=== PATIENT | female | born 1965 | race Caucasian/White ===

== ENCOUNTER 2020-08-29 13:56 | Outpatient (REF) | payer BC, SELFPAY | END 2020-08-29 13:57 | disposition home or self-care (01) | LOC: HO.HMGCLDS 13:56 | PROVIDERS: PCP Internal Medicine; Visit Provider Internal Medicine | DX: Z20.828 Contact with and (suspected) exposure to other viral communicable diseases (principal) | CPT/HCPCS: C9803; U0003 ==

== ENCOUNTER 2020-09-19 11:15 | Outpatient (REF) | payer BC, SELFPAY | END 2020-09-19 11:16 | disposition home or self-care (01) | LOC: HO.HMGCLDS 11:15 | PROVIDERS: PCP Internal Medicine; Visit Provider Internal Medicine | DX: Z20.828 Contact with and (suspected) exposure to other viral communicable diseases (principal) | CPT/HCPCS: C9803; U0003 ==

== ENCOUNTER 2021-09-09 15:20 | Outpatient (REF) | payer BC, SELFPAY ==
[2021-09-09 16:39] LABS: MANUAL DIFF FLAG NO
[2021-09-09 16:46] LABS: Basophils Percent Auto 0.6 % (0-2); Eosinophils Absolute Auto 0.1 X10*3/uL (0.0-0.4); Eosinophils Percent Auto 1.2 % (0-4); Hematocrit 39.7 % (37.0-47.0); Hemoglobin 13.2 g/dl (12.0-16.0); Imm Gran Abs Auto 0.01 X10*3/uL (0.00-0.03); Imm Gran Pct Auto 0.2 % (0.0-0.4); Lymphocytes Absolute Auto 1.2 X10*3/uL (1.2-4.9); Mean Corpuscular HGB Conc 33.2 g/dl (31.0-35.0); Mean Corpuscular Volume 99.3 fL (80.0-98.0); Mean Platelet Volume 9.9 fL (9.4-12.3); Monocytes Absolute Auto 0.4 X10*3/uL (0.1-1.2); Monocytes Percent Auto 8.4 % (2-11); Neutrophils Absolute Auto 3.4 x10*3/uL (2.0-8.3); Neutrophils Percent Auto 65.6 % (45-73); Platelet Count 246 X10*3/uL (160-400); Red Cell Distribution Width 12.9 % (11.0-16.0); White Blood Count 5.1 X10*3/uL (4.8-10.8)
[2021-09-09 17:03] LABS: Iron 91 mcg/dL (30-160); Percent Iron Saturation 24 % (15-50); Total Iron Binding Capacity 378 mcg/dL (228-428); Unsaturated Iron Binding 287 ug/dL
[2021-09-09 17:25] LABS: Ferritin 38 ng/mL (10-250); Free T4 (Free Thyroxine) 0.84 ng/dL (0.71-1.85); Thyroid Stimulating Hormone 0.74 uIU/mL (0.32-4.0)
[2021-09-10 18:07] LABS: DHEA Sulfate 56 mcg/dL (8-188)
[2021-09-10 22:01] LABS: Triiodothyronine T3 Free 2.6 pg/mL (2.3-4.2)
[2021-09-11 23:22] LABS: Follicle Stimulating Hormone 27.8 mIU/mL; Lutenizing Hormone 29.2 mIU/mL
[2021-09-12 00:27] LABS: Zinc 49 mcg/dL (60-130)
[2021-09-12 16:12] LABS: Methylmalonic Acid 75 nmol/L (87-318)
[2021-09-13 13:57] LABS: IGF-1 (Somatomedin C) 140 ng/mL (50-317); IGF-1 Z Score (Female) 0.1 SD (-2.0 - +2.0)
[2021-09-15 15:17] LABS: Testosterone, Free 1.2 pg/mL (0.1-6.4); Testosterone, Total 12 ng/dL (2-45)
[2021-09-15 22:46] LABS: Progesterone <0.1 ng/mL
[2021-09-17 00:07] LABS: Estrogen 339.6 pg/mL
== END 2021-09-09 15:21 | disposition home or self-care (01) ==
LOC: HO.HMGCLDS 15:20
PROVIDERS: Visit Provider Allergy & Immunology Allergy
DX: N95.8 Other specified menopausal and perimenopausal disorders (principal); D50.8 Other iron deficiency anemias; E07.89 Other specified disorders of thyroid; K90.9 Intestinal malabsorption, unspecified
CPT/HCPCS: 36415; 82627; 82672; 82728; 83001; 83002; 83540; 83735; 83921; 84144; 84305; 84402; 84403; 84439; 84443; 84481; 84630; 85025

== ENCOUNTER 2021-09-18 09:53 | Outpatient (REF) | payer BC, SELFPAY ==
[2021-09-20 22:12] LABS: Fecal Fat Qualitative Normal (Normal)
[2021-09-24 19:11] LABS: Pancreatic Elastase-1 455 mcg/g
== END 2021-09-18 09:54 | disposition home or self-care (01) ==
LOC: HO.HMGCLNP 09:53
PROVIDERS: Visit Provider Allergy & Immunology Allergy
DX: K90.9 Intestinal malabsorption, unspecified (principal)
CPT/HCPCS: 82656; 82705

== ENCOUNTER 2021-09-26 10:12 | Outpatient (REF) | payer BC, SELFPAY | END 2021-09-26 10:13 | disposition home or self-care (01) | LOC: HO.HMGCLDS 10:12 | PROVIDERS: Visit Provider Allergy & Immunology Allergy | DX: Z13.89 Encounter for screening for other disorder (principal) ==

== ENCOUNTER 2021-10-07 11:25 | Outpatient (REF) | payer BC, SELFPAY ==
[2021-10-07 15:13] LABS: Vitamin D 25-OH Total 21.8 ng/mL (>30)
== END 2021-10-07 11:26 | disposition home or self-care (01) ==
LOC: HO.HMGCLDS 11:25
PROVIDERS: Absent Provider Internal Medicine; PCP Internal Medicine; Visit Provider Internal Medicine
DX: Z78.0 Asymptomatic menopausal state (principal); Z20.822 Contact with and (suspected) exposure to COVID-19
CPT/HCPCS: 36415; 82306; C9803; U0003; U0005

== ENCOUNTER 2022-10-11 15:30 | Outpatient (REF) | payer BC, SELFPAY ==
[2022-10-11 16:28] LABS: Influenza A PCR NEGATIVE (Negative); Influenza B PCR NEGATIVE (Negative); Resp Syncy Virus RNA Qual PCR POSITIVE (Negative); SARS COV2 PCR INHOUSE NEGATIVE (Negative)
== END 2022-10-11 15:31 | disposition home or self-care (01) ==
LOC: HO.LNP 15:30
PROVIDERS: Visit Provider Internal Medicine
DX: Z20.822 Contact with and (suspected) exposure to COVID-19 (principal); R43.9 Unspecified disturbances of smell and taste
CPT/HCPCS: 0241U

== ENCOUNTER 2023-04-04 08:28 | Outpatient (REF) | payer BC, SELFPAY ==
[2023-04-04 11:03] LABS: MANUAL DIFF FLAG NO
[2023-04-04 11:09] LABS: Basophils Absolute Auto 0.1 X10*3/uL (0.0-0.2); Basophils Percent Auto 1.2 % (0-2); Eosinophils Absolute Auto 0.2 X10*3/uL (0.0-0.4); Hematocrit 39.2 % (37.0-47.0); Hemoglobin 12.6 g/dl (12.0-16.0); Imm Gran Abs Auto 0.01 X10*3/uL (0.00-0.03); Imm Gran Pct Auto 0.2 % (0.0-0.4); Lymphocytes Absolute Auto 1.3 X10*3/uL (1.2-4.9); Lymphocytes Percent Auto 33.3 % (20-40); Mean Corpuscular HGB Conc 32.1 g/dl (31.0-35.0); Mean Corpuscular Hemoglobin 32.1 pg (27.0-33.0); Mean Corpuscular Volume 99.7 fL (80.0-98.0); Mean Platelet Volume 10.3 fL (9.4-12.3); Monocytes Absolute Auto 0.4 X10*3/uL (0.1-1.2); Monocytes Percent Auto 9.7 % (2-11); Neutrophils Percent Auto 50.6 % (45-73); Platelet Count 313 X10*3/uL (160-400); Red Blood Count 3.93 X10*6/uL (4.20-5.50); Red Cell Distribution Width 13.6 % (11.0-16.0)
[2023-04-04 11:51] LABS: Alanine Aminotransferase 12 U/L (0-31); Anion Gap 10 (12-20); Aspartate Amino Transferase 23 U/L (5-31); Blood Urea Nitrogen 13 mg/dL (9-16); Calcium 9.3 mg/dL (8.4-10.2); Carbon Dioxide 26 mmol/L (22-29); Chloride 106 mmol/L (96-108); Cholesterol 150 mg/dL; Estimated Glomerular Filt Rate > 60; Glucose Fasting 74 mg/dL (60-99); HDL Cholesterol 72 mg/dL; LDL Cholesterol Calculated 67 mg/dl; Potassium 4.4 mmol/L (3.3-5.1); Sodium 138 mmol/L (135-145); Triglycerides 57 mg/dL
[2023-04-04 12:09] LABS: Vitamin D 25-OH Total 57.4 ng/mL (>30)
== END 2023-04-04 08:29 | disposition home or self-care (01) ==
LOC: HO.HMGCLDS 08:28
PROVIDERS: PCP Internal Medicine; Visit Provider Internal Medicine
DX: E55.9 Vitamin D deficiency, unspecified (principal); N95.1 Menopausal and female climacteric states; Z00.01 Encounter for general adult medical examination with abnormal findings
CPT/HCPCS: 36415; 80048; 80061; 82306; 84450; 84460; 85025

== ENCOUNTER 2023-10-26 10:05 | Outpatient (AMB) | payer BC, SELFPAY ==
[2023-10-26 10:22] VITALS: BP 122/72; PULSE 67; TEMP 36.6; O2SAT 98; BMI 22.5
--- NOTE | 2023-10-26 10:22 | MHC.OFFWIV ---
Intake Vital Signs 10/26/23 10:22 Height 5 ft 4 in Weight 131 lb 2 oz BMI 22.5 BP 122/72 Blood Pressure Location Lt brachial Position Sitting Pulse 67 Pulse Source Pulse Oximeter Temp 97.8 F Temp Source Oral Pulse Oximetry (%) 98 Oxygen Delivery Method Room Air Intake Visit Reasons: EP, sore throat, congestion ([phone]) Intake Note: Patient is here with nasal congestion, sore throat, neg. Covid test. Patient Tobacco Use Status: Former Tobacco user Allergies penicillin V Allergy (Unknown, Unverified 10/26/23 10:25) rash, dizziness, rash,dizziness Do you need a note to return to daycare/school/sports/work: Yes HPI HPI Comments History of Present Illness Details Patient presents to the walkin today with complaints of sinus congestion for last 2 weeks She has been using mucinex nasal spray but states it is no longer effective Reports difficulty breathing through her nose, worse in the night Tenderness across face She has tried herbal treatments and essential oils without relief. States no longer able to blow her nose and expel the mucous Denies cough, fever, shortness of breath, chest pain, palpitations Does report recently started having a sore throat. [facility] Medical History Menopausal and female climacteric states Environmental and seasonal allergies Vitamin D deficiency Adult general medical exam Postmenopausal syndrome Refused influenza vaccine Social History Housing: House Patient Tobacco Use Status: Former Tobacco user Tobacco use type: Cigarette Years Smoked: 10 yrs e-Cigarette/Vaping Use: Never Used Current occupational status: employed Cognitive needs: No Hearing needs: No Vision needs: No Review of Systems Const All systems reviewed & are unremarkable except as noted in HPI and below Physical Exam Vital Signs: Last Vital Signs Temp 97.8 F 10/26/23 10:22 Pulse 67 10/26/23 10:22 BP 122/72 10/26/23 10:22 Pulse Ox 98 10/26/23 10:22 Oxygen Delivery Method Room Air 10/26/23 10:22 BMI result Body Mass Index 22.5 General: awake, alert, oriented. Answers questions appropriately. Fully engaged in examination. Skin: warm, dry, intact HEENT: Left TM bulging, tenderness to frontal and maxillary sinuses. Posterior pharynx without erythema or exudate. negative lymphadenopathy. Cardiac: External chest normal in appearance. Respiratory: No cough, audible wheezing or stridor. LSCTAB. Abdomen: without gross distension. MS: No obvious swelling or deformities. Neurological: Oriented to person, place, time and situation. Thought process intact. Psychiatric: Appropriate mood and affect. Good judgment and insight. Results AMB Rapid Strep AMB Rapid Strep Negative Last Edit by Cass Emanuel CMA on 10/26/23 10:38 Results Reviewed Results Reviewed: Laboratory Last Values Strep Scn Rapid Clinic Negative 10/26/23 10:33 Assessment & Plan Assessment & Plan (1) Sinusitis: Code(s): J32.9 - Chronic sinusitis, unspecified Plan Rapid strep negative Zpak take as directed stop nasal mucinex Acute sinusitis: Rest, drink plenty of fluids, tylenol or motrin as needed. Follow up with pcp or in clinic for any new or worsening symptoms. Go to ER for shortness of breath, chest pain, palpitations, weakness, dizziness. Orders: Orders AMB Rapid Strep Screen Today J02.9 - Acute pharyngitis, unspecified BERTO Portillo Medications: New azithromycin (Zithromax Z-Cesario) For 250 mg dose pack: take 500 mg today (day 1), then 250 mg for 4 days (days 2-5) PO 6 tabs 0RF Christine Elkins APRN, [facility] Coding Level of Care Code Est Pt Level 4 (15855) Diagnoses Sinusitis J32.9
== END 2023-10-26 11:55 | disposition home or self-care (01) ==
PROVIDERS: PCP Internal Medicine; Visit Provider Registered Nurse Emergency
DX: J02.9 Acute pharyngitis, unspecified (principal); J32.9 Chronic sinusitis, unspecified
CPT/HCPCS: 87880; 99213

== ENCOUNTER 2024-09-14 11:52 | Outpatient (AMB) | payer BC, SELFPAY ==
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
[2024-09-14 11:58] VITALS: BP 116/72; PULSE 68; O2SAT 100; BMI 23.0
== END 2024-09-14 13:01 | disposition home or self-care (01) ==
PROVIDERS: PCP Internal Medicine; Visit Provider Internal Medicine
DX: Z00.01 Encounter for general adult medical examination with abnormal findings (principal); Z71.89 Other specified counseling; Z86.79 Personal history of other diseases of the circulatory system

== ENCOUNTER → 2024-09-14 11:52 | Outpatient (BNVA) | payer BC, SELFPAY | PROVIDERS: PCP Internal Medicine; Visit Provider Internal Medicine | DX: Z00.01 Encounter for general adult medical examination with abnormal findings (principal); E53.8 Deficiency of other specified B group vitamins; N92.0 Excessive and frequent menstruation with regular cycle; Z86.79 Personal history of other diseases of the circulatory system; Z71.89 Other specified counseling | CPT/HCPCS: 96127 ==

== ENCOUNTER 2024-09-19 07:41 | Outpatient (REF) | payer BC, SELFPAY ==
[2024-09-19 10:07] LABS: MANUAL DIFF FLAG NO
[2024-09-19 10:10] LABS: Basophils Percent Auto 0.8 % (0-2); Eosinophils Absolute Auto 0.2 X10*3/uL (0.0-0.4); Eosinophils Percent Auto 3.1 % (0-4); Hematocrit 38.2 % (37.0-47.0); Hemoglobin 12.8 g/dl (12.0-16.0); Imm Gran Abs Auto 0.02 X10*3/uL (0.00-0.03); Imm Gran Pct Auto 0.4 % (0.0-0.4); Lymphocytes Absolute Auto 1.3 X10*3/uL (1.2-4.9); Lymphocytes Percent Auto 25.2 % (20-40); Mean Corpuscular HGB Conc 33.5 g/dl (31.0-35.0); Mean Corpuscular Hemoglobin 33.8 pg (27.0-33.0); Mean Corpuscular Volume 100.8 fL (80.0-98.0); Mean Platelet Volume 9.3 fL (9.4-12.3); Monocytes Absolute Auto 0.5 X10*3/uL (0.1-1.2); Monocytes Percent Auto 9.9 % (2-11); Neutrophils Absolute Auto 3.2 x10*3/uL (2.0-8.3); Neutrophils Percent Auto 60.6 % (45-73); Platelet Count 326 X10*3/uL (160-400); Red Blood Count 3.79 X10*6/uL (4.20-5.50); Red Cell Distribution Width 12.6 % (11.0-16.0); White Blood Count 5.2 X10*3/uL (4.8-10.8)
[2024-09-19 10:56] LABS: Alanine Aminotransferase 14 U/L (0-31); Anion Gap 9 (12-20); Aspartate Amino Transferase 27 U/L (5-31); Blood Urea Nitrogen 14 mg/dL (9-16); Carbon Dioxide 27 mmol/L (22-29); Chloride 105 mmol/L (96-108); Cholesterol 161 mg/dL (<200); Estimated Glomerular Filt Rate > 60; Glucose Fasting 90 mg/dL (60-99); HDL Cholesterol 67 mg/dL (>40); LDL Cholesterol Calculated 80 mg/dL (<100); Sodium 137 mmol/L (135-145); Triglycerides 70 mg/dL (<150)
[2024-09-19 11:14] LABS: Vitamin D 25-OH Total 54.5 ng/mL (>30)
[2024-09-19 11:22] LABS: Folate 12.8 ng/mL (> or = 4.0); Vitamin B12 839 pg/mL (200-900)
== END 2024-09-19 07:42 | disposition home or self-care (01) ==
LOC: HO.HMGCLDS 07:41
PROVIDERS: PCP Internal Medicine; Visit Provider Internal Medicine
DX: Z00.01 Encounter for general adult medical examination with abnormal findings (principal); Z13.1 Encounter for screening for diabetes mellitus; Z13.220 Encounter for screening for lipoid disorders; E55.9 Vitamin D deficiency, unspecified; N95.1 Menopausal and female climacteric states; D72.829 Elevated white blood cell count, unspecified
CPT/HCPCS: 36415; 80048; 80061; 82306; 82607; 82746; 84450; 84460; 85025

== ENCOUNTER 2024-10-27 13:18 | Outpatient (REF) | payer BC, SELFPAY ==
--- OUTSIDE RECORDS SUMMARY | 2024-10-27 16:35 | XMS_ITS | Continuity of Care Document ---
Author Organization [facility] Address [address] [place] [address] Phone Care Team Providers Care Petroleum Inspector Supervisor Name Role Phone Martin Conte Unavailable Unavailable [...] Providers Copied on Encounter [facility] MD PANDA, [address] [place] [address] Dr Cornelius 1000Suite 1000Jame [place], [id number], [place] tel:[phone] [place] No Information 4 Maycol Salazar. [address] [place] [address], [place], [place], [id number], [place]. tel:[phone] Referring Provider: Melany Liu, [address] [place] [address], [address]. tel:[phone] [facility] MD PANDA, [address] [place] [address] Dr Cornelius 1000Suite 1000Jame [place], [id number], [place] tel:[phone] [facility] Pain in right leg 4 Lexis Guerra. [address] [facility], [address], [place], [place], [id number], [place]. tel:[phone] Referring Provider: Melany Liu, [address] [place] [address], [address]. tel:[phone] [facility] MD PADNA, [address] [place] [address] Dr Cornelius 1000Suite 1000Jame [place], [id number], [place] tel:[phone] [facility] Encounter for follow-up examination after completed treatment for conditions other than malignant nePain in right leg 4 Erik LINK, RVT, SUSU Vidal. [address] [place] [address], [place], [place], [id number], [place]. tel:[phone] Referring Provider: Melany Liu, [address] [place], [place] [address], [place], [address]. tel:[phone] [facility] MD PANDA, [address] [place] [address] Dr Cornelius 1000Suite Jame Thompson MD, [id number], [place] tel:[phone] [facility] Encounter for follow-up examination after completed treatment for conditions other than malignant neoplasmPain in right legPain in left lower leg 4 Erik LINK RVT, SUSU Vidal. [address] [facility], [address], [place], [place], [id number], [place]. tel:[phone] Referring Provider: Melany Howe MD Noe, [address] [place] [address], [address]. tel:[phone] [facility] MD PANDA, [address] [place] [address] Dr Cornelius 1000Suite Jame Thompson MD, [id number], [place] tel:[phone] CVR - [place] - [place] Varicose veins of left lower extremity with other complications 4 Erik LINK RVT, SUSU Vidal. [address] [facility], [place] [address], [place], [place], [id number], [place]. tel:[phone] Referring Provider: Melany Howe MD Noe, [address] [place] [address], [address]. tel:[phone] [facility] MD PANDA, [address] [place] [address] Dr Cornelius 1000Suite Jame Thompson MD, [id number], [place] tel:[phone] [facility] [place] Encounter for follow-up examination after completed treatment for conditions other than malignant neoplasmPain in right leg 4 Erik LINK RVT, SUSU Vidal. [address] [facility], [address], [place], [place], [id number], [place]. tel:[phone] Referring Provider: Melany Liu, [address] [place] [address], [address]. tel:[phone] [facility] MD PANDA, [address] [place] [address] Dr Cornelius 1000[address] 1000, [place], [id number], [place] tel:[phone] [facility] - [place] Encounter for follow-up examination after completed treatment for conditions other than malignant neoplasmPain in right leg 4 Erik LINK RVT, SUSU Vidal. [address] [place] [address], [place], [id number], [place]. tel:[phone] Referring Provider: Melany Howe MD Noe, [address] [place] [address], [address]. tel:[phone] [place] [facility] MD PANDA, [address] [place] [address] Dr Cornelius 1000Suite 1000Jame [place], [id number], [place] tel:[phone] [facility] - [place] Varicose veins of right lower extremity with other complications 4 Idris Reyes. [facility] [facility], [place] [address], [place], [id number], [place]. tel:[phone] Referring Provider: Melany Howe MD Noe, [address] [place] [address], [place], [address]. tel:[phone] [facility] MD PANDA, [address] [place] [address] Dr Cornelius 1000[address] 1000, [place], [id number], [place] tel:[phone] [facility] Varicose veins of right lower extremity with other complications 4 Erik LINK RVT, SUSU Vidal. [facility] [address], [place], [id number], [place]. tel:[phone] Referring Provider: Melany Liu, [address] [place] [address], [place], [address]. tel:[phone] Offic/outpt E&m Estab 5 Min Trial- Telemedicine CT & [place] [facility] MD PANDA, [address] [place] [address] Dr Cornelius 1000Suite 1000Jame [place], [id number], [place] tel:[phone] [facility] Cramp and spasmRestless legs syndromeVenou s insufficiency (chronic) (peripheral) 4 Maycol Salazar. [address] [place] [address], [place], [place], [id number], [place]. tel:[phone] Referring Provider: Melany Liu, [address] [facility] [address] [facility], [place], [address]. tel:[phone] [facility] MD PANDA, [address] [place] [address] Dr Cornelius 1000SuJame gleason MD, [id number], [place] tel:[phone] [facility] - [place] No Information 4 Erik LINK RVT, SUSU Vidal. [address] [place] [address], [place], [place], [id number], [place]. tel:[phone] Office/Oupt E&M New Pt 45 Mins- CT & [place] [facility], [address] [place] [address] Dr Cornelius 1000SuJame gleason MD, [id number], [place] tel:[phone] [facility] - [place] Chronic venous hypertension (idiopathic) with other complications of bilateral lower extremityRest less legs syndromePain in left legCramp and spasm 4 Erik LINK RVT, RPVI Robert. [address] [place] [address], [place], [place], [id number], [place]. tel:[phone] Referring Provider: Melany Liu, [address] [facility] [address] [facility], [place], [address]. tel:[phone] [facility] MD PANDA, [address] [place] [address] Dr Cornelius 1000SuJame gleason MD, [id number], [place] tel:[phone] [facility] Chronic venous hypertension (idiopathic) with other complications of bilateral lower extremity 4 Erik LINK, WILLIAM, SUSU Vidal. [address] [facility], [place] [address], [place], [id number], . tel:[phone] Referring Provider: Young Valencia MD, WILLIAM, SUSU, [address] [place] [address], [place], [address] . tel:[phone] Family History Family Member Type Diagnosis Age At Onset No Information Payers Payer name Insurance type Covered republican ID Authoriza tion(s) [facility] [id number] Social History Type Description Quantity Date Captured [...] and provided Related to Cramp and spasm Diet education Related to Body mass index (BMI) 22.0-22.9, adult Giving Encouragement to exercise Related to Body mass index (BMI) 22.0-22.9, adult Lifestyle education Related to B scott mass index (BMI) 22.0-22.9, adult Patient education booklet given Related to Chronic venous hypertension (idiopathic) with other complications of bilateral lower extremity Pre and post instruc tions reviewed and provided Related to Chronic venous hypertension (idiopathic) with other complications of bilateral lower extremity Assessments Type Assessment Date No Information Patient Care Teams Name Effective Dates (start - stop) Status Members No Information
[2024-10-27 17:10] LABS: Influenza A PCR NEGATIVE (Negative); Influenza B PCR NEGATIVE (Negative); Resp Syncy Virus RNA Qual PCR NEGATIVE (Negative); SARS COV2 PCR INHOUSE NEGATIVE (Negative)
== END 2024-10-27 13:19 | disposition home or self-care (01) ==
LOC: HO.LAB 13:18
PROVIDERS: PCP Internal Medicine; Visit Provider Physician Assistant
DX: J06.9 Acute upper respiratory infection, unspecified (principal)
CPT/HCPCS: 0241U; 87880

== ENCOUNTER 2024-10-27 13:18 | Outpatient (AMB) | payer BC, SELFPAY ==
[2024-10-27 13:50] VITALS: BP 126/80; PULSE 73; TEMP 36.7; O2SAT 98; BMI 23.2
--- NOTE | 2024-10-27 13:50 | MHC.OFFWIV ---
Intake Vital Signs 10/27/24 13:50 Height 5 ft 4 in Weight 135 lb BMI 23.2 BP 126/80 Blood Pressure Location Rt brachial Position Sitting Pulse 73 Pulse Source Pulse Oximeter Temp 98.1 F Temp Source Oral Pulse Oximetry (%) 98 Oxygen Delivery Method Room Air Intake Visit Reasons: EP ?strep throat, cold symptoms Intake Note: Pt is here today c/o sorethroat and cold sx's Patient Tobacco Use Status: Former Tobacco user Allergies penicillin V Allergy (Unknown, Unverified 09/14/24 12:14) rash, dizziness, rash,dizziness HPI HPI Comments History of Present Illness Details History - The patient is a 58-year-old female presenting with a sore throat and nasal congestion. - Symptoms began five days ago, with the sore throat worsening at night. - Patient experiences nasal congestion and has a history of sinus issues. - No associated fever, cough or ear pain, but there is neck tenderness on the right side. - Prior negative COVID-19 test results despite exposure to a COVID-positive individual. - The patient is allergic to penicillin, with a non-severe adverse reaction reported. - Current treatment with Sudafed, no regular allergy medications. Physical Exam General: Cooperative, healthy appearing, comfortable and no acute distress Orientation/consciousness: Patient oriented x3 Limitations: No limitations Head: Normal to inspection Ears: Hearing grossly normal bilaterally, external ears normal and TM's normal bilaterally, slight redness noted Nose: Normal external nose present, Normal nares present and No nasal discharge present Face and sinus: Normal facial exam and Yes sinuses nontender Mouth: Normal oral and palatal mucosa present and moist mucous membranes Throat: Yes tonsils normal, Yes uvula midline. Posterior oropharynx erythema, slight exudate noted on the right upper area Eyes: Appearance normal, both eyes and all related structures Neck: Normal visual inspection, tenderness on the right side Respiratory:Normal respiratory effort, able to speak in complete sentences, no respiratory distress, not tachypneic, no tripod positioning and no use of accessory muscles Skin: No rashes or lesions noted Neuro: Patient oriented x3 Extremities: Normal to inspection and Yes no clubbing, cyanosis or edema [facility] Medical History (Updated 10/27/24 @ 14:41 by Yue Thayer PA-C) Menopausal and female climacteric states Environmental and seasonal allergies Vitamin D deficiency Adult general medical exam Postmenopausal syndrome Refused influenza vaccine Social History Housing: House Patient Tobacco Use Status: Former Tobacco user Tobacco use type: Cigarette Years Smoked: 10 yrs e-Cigarette/Vaping Use: Never Used Current occupational status: employed Cognitive needs: No Hearing needs: No Vision needs: No Review of Systems Const All systems reviewed & are unremarkable except as noted in HPI and below Physical Exam Vital Signs: Last Vital Signs Temp 98.1 F 10/27/24 13:50 Pulse 73 10/27/24 13:50 BP 126/80 10/27/24 13:50 Pulse Ox 98 10/27/24 13:50 Oxygen Delivery Method Room Air 10/27/24 13:50 BMI result Body Mass Index 23.2 Results AMB Rapid Strep AMB Rapid Strep Negative Last Edit by Richelle Howard CMA on 10/27/24 14:04 Results Reviewed Results Reviewed: Laboratory Last Values Strep Scn Rapid Clinic Negative 10/27/24 13:58 Assessment & Plan Assessment & Plan (1) Pharyngitis, streptococcal, acute: Code(s): J02.0 - Streptococcal pharyngitis Plan: The patient presents with symptoms indicating acute pharyngitis and nasal congestion likely linked to allergic rhinitis, requiring cefdinir due to penicillin allergy. Despite a negative rapid strep test, clinical signs suggest a potential streptococcal infection, Centor criteria 2 points 11-17% probability of strep pharyngitis, warranting antibiotic treatment for a suggested seven-day course, adjustable to five days based on symptom improvement. Supportive measures include hot tea, honey, and cold fluids for symptomatic relief, alongside the use of a neti pot and Flonase to manage nasal congestion. Precautionary measures include wearing a mask to prevent potential transmission until 48 hours post-antibiotic commencement. Flu, covid and RSV testing sent. Patient was informed and verbally consented to the use of an ambient scribe for clinic note documentation during this visit Orders: Orders AMB Rapid Strep Screen Today Z13.9 - Encounter for screening, unspecified SARS-CoV2/FLU/RSV Today J06.9 - Acute upper respiratory infection, unspecified Medications: New cefdinir 300 mg PO Q12H 14 caps 0RF Coding Level of Care Code Est Pt Level 4 (21152) Diagnoses Pharyngitis, streptococcal, acute J02.0
--- OUTSIDE RECORDS SUMMARY | 2024-10-27 14:38 | XMS_ITS | Continuity of Care Document ---
Author Organization [facility] Address [address] [place] [address] Phone Care Team Providers Care Detective Narcotics And Vice Name Role Phone Martin Conte Unavailable Unavailable Allergies, Adverse Reactions, Alerts Substance Reaction Status Criticality PENICILLIN Active No Information Medications Medication Instructions Dosage Effective Dates (start - stop) Status Comments Eliquis 5 mg tablet take 2 tablet by ora l route 2 times every day for 7 days then 1 tablet twice a day for 1 week - Active Procedures Procedure Date PT Did Not Receive Services Duplex Scan-extrem Veins; Uni/ CT & [place] D Duplex Scan-extrem Veins; Uni/ CT & [place] D Duplex Scan-extrem Veins; Comp- CT & [place] Ultrason Guidan Needle Bx-rad- CT & [place] N Inj Sclerosing Solution; Sngl- CT & [place] N Duplex Scan-extrem Veins; Uni/ CT & [place] N Duplex Scan-extrem Veins; Uni/ CT & [place] N Inj Scleros Solut; Mx Veins 1- CT & MA N Ultrason Guidan Needle Bx-rad- CT & [place] N Endovenous Laser, 1st Vein- CT & [place] Offic/outpt E&m Estab 5 Min Trial- Telem edicine CT & [place] Office/Oupt E&M New Pt 45 Mins- CT & [place] Duplex Scan-extrem Veins; Comp- CT & [place] Advance Directives Directive Yes / No Effective Date File Name No Information Encounters Encounter Description Practice Location Reason(s) For Visit Diagnoses Date Provider Providers Copied on Encounter [facility] MD PANDA, [address] [place] [address] Dr Cornelius 1000[address]Jame [place], [id number], [place] tel:[phone] [facility] [place] No Information 4 Maycol Salazar. [address] [place] [address], [place], [place], [id number], [place]. tel:[phone] Referring Provider: Melany Liu, [address] [place] [address], [address]. tel:[phone] [facility] MD PANDA, [address] [place] [address] Dr Cornelius 1000Suite 1000Jame [place], [id number], [place] tel:[phone] [facility] [place] Pain in right leg 4 Lexis Guerra. [address] [facility], [address], [place], [place], [id number], [place]. tel:[phone] Referring Provider: Melany Liu, [address] [place] [address], [address]. tel:[phone] [facility] MD PANDA, [address] [place] [address] Dr Cornelius 1000Suite 1000Jame [place], [id number], [place] tel:[phone] [facility] [place] Encounter for follow-up examination after completed treatment for conditions other than malignant nePain in right leg 4 Erik LINK, RVT, SUSU Vidal. [address] [place] [address], [place], [place], [id number], [place]. tel:[phone] Referring Provider: Melany Liu, [address] [place], [place] [address], [place], [address]. tel:[phone] [facility] MD PANDA, [address] [place] [address] Dr Cornelius 1000Suite Jame Thompson MD, [id number], [place] tel:[phone] [facility] Encounter for follow-up examination after completed treatment for conditions other than malignant neoplasmPain in right legPain in left lower leg 4 Erik LINK RVT, SUSU Vidal. [address] [facility] [place], [address], [place], [place], [id number], [place]. tel:[phone] Referring Provider: Melany Howe MD Noe, [address] [place] [address], [address]. tel:[phone] [facility] MD PANDA, [address] [place] [address] Dr Cornelius 1000Suite Jame Thompson MD, [id number], [place] tel:[phone] [facility] - [place] Varicose veins of left lower extremity with other complications 4 Erik LINK RVT, SUSU Vidal. [address] [facility] [place], [place] [address], [place], [place], [id number], [place]. tel:[phone] Referring Provider: Melany Howe MD Noe, [address] [place] [address], [address]. tel:[phone] [facility] MD PANDA, [address] [place] [address] Dr Cornelius 1000Suite Jame Thompson MD, [id number], [place] tel:[phone] [facility] [place] Encounter for follow-up examination after completed treatment for conditions other than malignant neoplasmPain in right leg 4 Erik LINK RVT, SUSU Vidal. [address] [facility] [place], [address], [place], [place], [id number], [place]. tel:[phone] Referring Provider: Melany Liu, [address] [place] [address], [address]. tel:[phone] [facility] MD PANDA, [address] [place] [address] Dr Cornelius 1000[address] 1000, [place], [id number], [place] tel:[phone] [facility] [place] Encounter for follow-up examination after completed treatment for conditions other than malignant neoplasmPain in right leg 4 Erik LINK RVT, SUSU Vidal. [address] [place] [address] 302, [place], [id number], [place]. tel:[phone] Referring Provider: Melany Howe MD Noe, [address] [place] [address], [address]. tel:[phone] [place] [facility] MD PANDA, [address] [place] [address] Dr Cornelius 1000Suite 1000Jame [place], [id number], [place] tel:[phone] [facility] Varicose veins of right lower extremity with other complications 4 Idris Reyes. [facility] [place], [place] [address], [place], [id number], [place]. tel:[phone] Referring Provider: Melany Howe MD Noe, [address] [place] [address], [place], [address]. tel:[phone] [place] [facility] MD PANDA, [address] [place] [address] Dr Cornelius 1000[address] 1000, [place], [id number], [place] tel:[phone] [facility] Varicose veins of right lower extremity with other complications 4 Erik LINK RVT, SUSU Vidal. [facility] [address], [place], [id number], [place]. tel:[phone] Referring Provider: Melany Liu, [address] [place] [address], [place], [address]. tel:[phone] Offic/outpt E&m Estab 5 Min Trial- Telemedicine CT & [place] [facility] MD PANDA, [address] [place] [address] Dr Cornelius 1000Suite 1000Jame [place], [id number], [place] tel:[phone] [facility] [place] Cramp and spasmRestless legs syndromeVenou s insufficiency (chronic) (peripheral) 4 Maycol Salazar. [address] [place] [address], [place], [place], [id number], [place]. tel:[phone] Referring Provider: Melany Liu, [address] [facility] [address] [facility], [place], [address]. tel:[phone] [facility] MD PANDA, [address] [place] [address] Dr Cornelius 1000SuJame gleason MD, [id number], [place] tel:[phone] [facility] [place] No Information 4 Erik LINK RVT, SUSU Vidal. [address] [place] [address], [place], [place], [id number], [place]. tel:[phone] Office/Oupt E&M New Pt 45 Mins- CT & [place] [facility], [address] [place] [address] Dr Cornelius 1000SuJame gleason MD, [id number], [place] tel:[phone] [facility] Chronic venous hypertension (idiopathic) with other complications of bilateral lower extremityRest less legs syndromePain in left legCramp and spasm 4 Erik LINK RVT, RPVI Robert. [address] [place] [address], [place], [place], [id number], [place]. tel:[phone] Referring Provider: Melany Liu, [address] [facility] [address] [facility], [place], [address]. tel:[phone] [facility] MD PANDA, [address] [place] [address] Dr Cornelius 1000SuJame gleason MD, [id number], [place] tel:[phone] [facility] Chronic venous hypertension (idiopathic) with other complications of bilateral lower extremity 4 Erik LINK, WILLIAM, SUSU Vidal. [address] [facility] [place], [place] [address], [place], [id number], . tel:[phone] Referring Provider: Young Valencia MD, WILLIAM, SUSU, [address] [place] [address], [place], [address] . tel:[phone] Family History Family Member Type Diagnosis Age At Onset No Information Payers Payer name Insurance type Covered republican ID Authoriza tion(s) [facility] [id number] Social History Type Description Quantity Date Captured Comments Sex Female Smoking Status No Information Chief Complaint And Reason For Visit No Information Reason For Referral Reason For Referral No Information Plan Of Treatment Date Type Action Status Goal Diet education completed Referral Ordered: Weight management: Referral to physician timeframe: 3 Months (related to Body mass index (BMI) 22.0-22.9, adult) ordered Appointment Keri Cordova BOOKED Appointment Keri Cordova BOOKED History Of Present Illness Encounter Date Complaint History Of Prese nt Illness No Information Functional Status Date Functional Assessmen t No Information Instructions Date Instruction Additional Infor mation Patient education booklet given Related to Cramp and spasm Pre and post instruc tions reviewed and provided Related to Cramp and spasm Pre and post instruc tions reviewed and provided Related to Chronic venous hypertension (idiopathic) with other complications of bilateral lower extremity Patient education booklet given Related to Chronic venous hypertension (idiopathic) with other complications of bilateral lower extremity Lifestyle education Related to B scott mass index (BMI) 22.0-22.9, adult Giving Encouragement to exercise Related to Body mass index (BMI) 22.0-22.9, adult Diet education Related to Body mass index (BMI) 22.0-22.9, adult Assessments Type Assessment Date No Information Patient Care Teams Name Effective Dates (start - stop) Status Members No Information
== END 2024-10-27 14:42 | disposition home or self-care (01) ==
PROVIDERS: PCP Internal Medicine; Visit Provider Physician Assistant
DX: J02.0 Streptococcal pharyngitis (principal); Z13.9 Encounter for screening, unspecified

== ENCOUNTER 2024-11-25 13:51 | Outpatient (AMB) ==
--- NOTE | 2024-11-25 14:09 | MHC.OFFWIV ---
Intake Vital Signs 11/25/24 14:13 Weight 133 lb BP 140/90 H Blood Pressure Location Rt brachial Position Sitting Pulse 78 Pulse Source Pulse Oximeter Temp 97.5 F Temp Source Oral Pulse Oximetry (%) 98 Oxygen Delivery Method Room Air Intake Visit Reasons: EP ? sinus infection Intake Note: Patient here for sinus congestion that has been present since thursday. Patient Tobacco Use Status: Former Tobacco user Allergies penicillin V Allergy (Unknown, Verified 11/25/24 14:13) rash, dizziness, rash,dizziness Do you need a note to return to daycare/school/sports/work: No HPI HPI Comments History of Present Illness Details This is a 59-year-old female who presented to the walk-in clinic complaining of sinus pain/pressure/congestion and rhinorrhea with nasal discharge/drainage x 4 days. She denies any fevers/chills. She denies any cough. She states that she has had this in the past and she got antibiotics with significant relief. She has been using cmml-lky-mtepxso decongestants including pseudoephedrine without much relief. She has also been using some tlny-snr-xqizuhs nasal spray without significant. She denies any known sick contacts. [facility] Medical History (Updated 10/27/24 @ 14:41 by Yue Thayer PA-C) Menopausal and female climacteric states Environmental and seasonal allergies Vitamin D deficiency Adult general medical exam Postmenopausal syndrome Refused influenza vaccine Social History Housing: House Patient Tobacco Use Status: Former Tobacco user Tobacco use type: Cigarette Years Smoked: 10 yrs e-Cigarette/Vaping Use: Never Used Current occupational status: employed Cognitive needs: No Hearing needs: No Vision needs: No Review of Systems Const All systems reviewed & are unremarkable except as noted in HPI and below Reports no additional complaints Eyes Reports no additional complaints ENT Reports no additional complaints Card Reports no additional complaints Resp Reports no additional complaints GI Reports no additional complaints Reports no additional complaints Musc Reports no additional complaints Skin/Breast Reports system reviewed and no additional complaints, except as documented Neuro Reports no additional complaints Psych Reports no additional complaints Endo Reports no additional complaints Tyler/Lymph Reports no additional complaints Aller/Immun Reports no additional complaints Physical Exam Vital Signs: Last Vital Signs Temp 97.5 F 11/25/24 14:13 Pulse 78 11/25/24 14:13 BP 140/90 H 11/25/24 14:13 Pulse Ox 98 11/25/24 14:13 Oxygen Delivery Method Room Air 11/25/24 14:13 Const Other: Vital signs reviewed. Constitutional: Non-toxic appearing. No acute distress. Well-developed and well-nourished. HEENT: Normocephalic and atraumatic. Tympanic membranes without erythema, edema, or bulging bilaterally. External auditory canals without erythema or edema bilaterally. Moist mucous membranes. No pharyngeal erythema or exudates. + Maxillary sinus tenderness to palpation. Skin: Warm and dry. No rashes or lesions noted. Neck: Full and painless range of motion. No cervical lymphadenopathy. Cardio: Regular rate. No lower extremity edema. No JVD. Pulmonary: No respiratory distress. No accessory muscle usage. Musculoskeletal: Normal range of motion in joints throughout the body. No deformity or other signs of injury. Neuro: Alert and oriented x4. Cranial nerves 2-12 grossly intact. No focal deficits appreciated. Psych: Normal mood and affect. Assessment & Plan Assessment & Plan (1) Acute sinusitis: Code(s): J01.90 - Acute sinusitis, unspecified Qualifiers: Sinusitis location: maxillary Recurrence: not specified as recurrent Qualified Code(s): J01.00 - Acute maxillary sinusitis, unspecified Plan: This is a 59-year-old female who presented to the walk-in clinic complaining of sinus pain/pressure/congestion x 4 days. On physical examination, patient has maxillary sinus tenderness to palpation bilaterally. History and physical most consistent with acute sinusitis, bacterial versus viral. Given persistent and worsening symptoms as well as maxillary sinus tenderness to palpation and purulent nasal discharge/drainage, I will treat with p.o. azithromycin 500 mg today followed by 250 mg daily x4 days. Recommended symptomatic management including humidification at nighttime, continue vlxz-tnb-xwemgoq normal saline or fluticasone nasal spray, and over-the counter decongestants. Patient advised to follow-up here if she were to develop persistent or worsening symptoms. Patient verbalizes understanding and she is in agreement with the plan. Medications: New azithromycin For 250 mg dose pack: take 500 mg today (day 1), then 250 mg for 4 days (days 2-5) PO 6 tabs 0RF Coding Level of Care Code Est Pt Level 3 (48048) Diagnoses Acute maxillary sinusitis, recurrence not specified J01.00 Sinusitis location: maxillary Recurrence: not specified as recurrent
[2024-11-25 14:13] VITALS: BP 140/90; PULSE 78; TEMP 36.4; O2SAT 98
== END 2024-11-25 15:01 | disposition home or self-care (01) ==
LOC: HO.HMCWIC 14:11
PROVIDERS: PCP Internal Medicine; Visit Provider Physician Assistant Medical
DX: J01.00 Acute maxillary sinusitis, unspecified (principal)

== ENCOUNTER → 2024-11-25 13:51 | Outpatient (BNVA) | payer BC, SELFPAY | PROVIDERS: PCP Internal Medicine ==

== ENCOUNTER 2025-06-30 14:10 | Outpatient (AMB) | payer BC, SELFPAY ==
--- OUTSIDE RECORDS SUMMARY | 2025-06-02 09:00 | XMS_ITS ---
Author Organization [employer] [facility] Address [address] [place] [address] Care Team Providers Care Sales And Service Associate Name Role Phone MICHAEL LINK, CYRUS Primary Care Provider Cytnhia Phipps Unavailable [phone] REASON FOR VISIT Annual ASSEMBLING FABRICATOR Physical Encounters Encounter Location Date Provider Diagnosis [facility] [employer] [address] [place] [address] 06/02/2025 Cynthia Mcdonald Plan Of Treatment Next Appt Details Provider Name:Cynthia L Vicente spaulding, 09/29/2025 10:00:00 AM, [address] [facility], [address], [place], [address], Progress Notes * CAROLYNE BROWNDOB:03/1966 (59 yo F)Acc No.[id number]:06/02/2025 PROGRESS NOTES Patient: Sonam CAROLYNE OROZCO Appointment Provider: Sonam Mcdonald M.D. :1965 A ge:59 Y S ex:Female Date:06/02/2025 Address:[address] [place], [place] [id number] Pcp:CYRUS RODRIGUEZ MD Subjective: * Chief Complaints: * 1 . Annual ASSEMBLING FABRICATOR Physical. * Medical History: Objective: * Vitals: Assessment: Plan: * Treatment: * Images: Billing Information: * Visit Code: * Procedure Codes: * Electronic signature of Chelita Mcdonald MD on 06/30/2025 at 05:05 PM EDT Sign off status: Pending * Appointment Provider: Sonam Mcdonald M.D. Date: 0 06/02/2025 Generated for Nichol pickett/Sarah/Len on: 0 06/30/2025 05:05 PM EDT
[2025-06-30 14:19] VITALS: BP 122/88; PULSE 66; TEMP 36.3; O2SAT 97; BMI 23.0
--- NOTE | 2025-06-30 14:19 | AM.OFFWIN_ITS ---
Intake Vital Signs 06/30/25 14:19 Height 5 ft 4 in Weight 134 lb BMI 23.0 BP 122/88 Blood Pressure Location Lt brachial Position Sitting Pulse 66 Pulse Source Pulse Oximeter Temp 97.3 F Temp Source Oral Pulse Oximetry (%) 97 Oxygen Delivery Method Room Air Intake Visit Reasons: ep sinus infection Intake Note: pt presents with sinus pain, congestion and headaches for about 2 weeks Patient Tobacco Use Status: Former Tobacco user Allergies penicillin V Allergy (Unknown, Verified 06/30/25 14:21) rash, dizziness, rash,dizziness azithromycin Adverse Reaction (Mild, Verified 06/30/25 14:23) Diarrhea Do you need a note to return to daycare/school/sports/work: No HPI HPI Comments History of Present Illness Details This is a 59-year-old female with no stated past medical history presenting for evaluation of sinus congestion and headache that she has had intermittently for the past 2 weeks. Patient states that she will feel congested and it will occasionally resolve but then recur again the next day. Patient denies having any fevers, chills, ear pain, sore throat or dental pain. Patient states that her throat will occasionally feel ?scratchy?. Patient has used a Mucinex nasal spray intermittently without relief. Patient reports having some environmental allergies and she took Sudafed this morning without relief of her symptoms. [facility] Medical History (Updated 06/30/25 @ 15:01 by Conchita River PA-C) Menopausal and female climacteric states Environmental and seasonal allergies Vitamin D deficiency Adult general medical exam Postmenopausal syndrome Refused influenza vaccine Social History Housing: House Patient Tobacco Use Status: Former Tobacco user Tobacco use type: Cigarette Years Smoked: 10 yrs e-Cigarette/Vaping Use: Never Used Current occupational status: employed Cognitive needs: No Hearing needs: No Vision needs: No Review of Systems Const All systems reviewed & are unremarkable except as noted in HPI and below Denies body aches, Denies chills, Denies fatigue, Denies fever(s) and Reports headache(s) Eyes Reports no additional complaints ENT Reports as per HPI, Denies dental pain, Denies otalgia, Denies facial pain, Reports headache(s), Reports nasal congestion, Denies nasal discharge, Denies odynophagia and Reports sore throat ( scratchy ) Card Reports no additional complaints Resp Reports no additional complaints, Denies chest congestion, Denies cough and Denies wheezing GI Reports no additional complaints and Denies odynophagia Reports no additional complaints Musc Reports no additional complaints and Denies myalgias Skin/Breast Reports system reviewed and no additional complaints, except as documented Neuro Reports no additional complaints and Reports headache(s) Psych Reports no additional complaints Endo Denies fatigue Aller/Immun Denies wheezing Physical Exam Vital Signs: Last Vital Signs Temp 97.3 F 06/30/25 14:19 Pulse 66 06/30/25 14:19 BP 122/88 06/30/25 14:19 Pulse Ox 97 06/30/25 14:19 Oxygen Delivery Method Room Air 06/30/25 14:19 BMI result Body Mass Index 23.0 Const General: cooperative, healthy appearing, comfortable, no acute distress, well developed, alert, awake, Physically active and well groomed; No acute distress, diaphoretic, ill appearing, lethargic or tired appearing Nutritional Appearance: well nourished Orientation/consciousness: patient oriented x3 and No lethargic Limitations: no limitations HEENT Head: Yes normal to inspection and Yes normocephalic Ears: hearing grossly normal bilaterally, TM normal on the right, left TM abnormal (bulging TM without erythema, minimal fluid level) and EAC's normal General nose exam: Normal external nose present Face and sinus: Yes normal facial exam, Yes sinuses nontender and Yes face symmetric Mouth: Normal oral and palatal mucosa present, oropharynx normal and moist mucous membranes Throat: Yes posterior oropharynx normal and Yes postnasal drainage Eyes General: appearance normal, both eyes and all related structures Neck Lymphatic: no lymphadenopathy noted Resp Effort & Inspection: normal respiratory effort, not labored and not tachypneic Auscultation: clear to auscultation bilaterally, no rhonchi and no wheezes Cardio Rate: regular rate Rhythm: regular rhythm Skin General skin exam: no rashes or lesions noted Neuro General: patient oriented x3 Psych Appearance: grossly normal Mental Status: mental status grossly normal Insight: Good insight present (Psych) Judgement: Good judgement present (Psych) Assessment & Plan Assessment & Plan (1) Sinus congestion: Comment: Patient is well-appearing, afebrile and in no acute distress. Given patient's serous otitis without evidence of an otitis media, patient will be discharged home with fluticasone nasal spray. Code(s): R09.81 - Nasal congestion Plan: Fluticasone 1 spray each nostril once daily x2 weeks. Ibuprofen or Tylenol as needed for headache. Follow up with primary care provider as needed. Medications: New fluticasone propionate 50 mcg/actuation administer into each nostril 1 spray intranasal DAILY 16 grams 1RF Coding Level of Care Code Est Pt Level 3 (93375) Diagnoses Sinus congestion R09.81 Time Spent (min) 20
--- OUTSIDE RECORDS SUMMARY | 2025-06-30 17:05 | XMS_ITS | Patient Health Record ---
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 Name Role Phone MICHAEL LINK, CYRUS Primary Care Provider Cynthia Phipps Unavailable [phone] Allergies Allergen (clinical drug ingredient) Drug/Non Drug Allergy documented on EMR Reaction Allergy Type Onset Date Status Penicillin Unknown Drug Allergy Active Results Component Value Reference Range Notes Test, Urine Reviewed date:06/30/2024 03:53:58 PM Interpretation: Performing Lab: Notes/Report: Test, Urine Negative SURGICAL PATHOLOGY Reviewed date:07/12/2024 09:57:15 AM Interpretation: Performing Lab:Testing performed or reported by [facility], [place] [address] Vignesh Villanueva MD, Autism Tutor [facility]# [id number] Notes/Report: Patient Name: CAROLYNE BROWN Lab Patient : 1965 (Age: 58) Collection Date: 06/30/2024 Accession Date: 07/04/2024 Sign Out Date: 07/11/2024 Tissue Source: 1:ECC 2:CERVICAL POLYP 3:CX BX 1:00 4:CX BX 5:00 5:CX BX 10:00 Final Diagnosis: 1. Endocervix, curettings: - Scant endocervical glandular mucosa and squamous mucosa, negative for squamous intraepithelial lesion. 2. Cervical polyp, polypectomy: - Polypoid fragment of endocervical glandular mucosa with surface squamous metaplasia, with acute and chronic inflammation and reactive change. 3. Cervix, 1 o'clock, biopsy: - Endocervical glandular mucosa and squamous mucosa with chronic cervicitis and reactive epithelial change. - No definite squamous intraepithelial lesion identified. 4. Cervix, 5 o'clock, biopsy: - Low grade squamous intraepithelial lesion (ANGEL LUIS 1). 5. Cervix, 10 o'clock, biopsy: - Squamous mucosa, no dysplastic squamous epithelium identified. - Endocervical glandular transformation zone not represented. Primary Pathologist:Ashley Lane M.D.,Ph.D. electronically signed out by: Ashley Lane M.D.,Ph.D. / [facility] Clinical History: LGSIL, positive HPV, cervical polyp Gross Description: Part 1. Labeled endocervical curettings . Received in formalin is a 1.4 x 1.1 x 0.2 cm aggregate of red, peña tissue with translucent mucus. The specimen is entirely submitted. 1-multiple pieces, x 2. (EG)* Part 2. Labeled cervical polyp . Received in formalin is a 1.0 x 0.8 x 0.2 cm aggregate of translucent mucus with peña, red tissue. The specimen is entirely submitted. 1-multiple pieces, x 2. (EG)* Part 3. Labeled 1: 00 . Received in formalin is a 0.4 x 0.3 x 0.3 cm soft white tissue. The specimen is entirely submitted. 1-1 piece, x 2, EOE. (EG)* Part 4. Labeled 5: 00 . Received in formalin is a 0.3 x 0.3 x 0.3 cm soft peña, red tissue. The specimen is entirely submitted. 1-1 piece, x 2, EOE. (EG)* Part 5. Labeled 10: 00 . Received in formalin is a 0.3 x 0.3 x 0.2 cm soft peña, red tissue. The specimen is entirely submitted. 1-1 piece, x2, EOE. (EG)* As of December 26, 2023, the specimen processing and staining is performed at [facility], [address] [place] [address] (CLIA#[id number]). Its performance characteristics determined by [facility]. Shemar Jackson M.D. Autism Tutor of Surgical Pathology, Loli Mario M.D. Autism Tutor Cytopathology Phone #: [phone], On-Call Pathologist: [id number] PDF Report Reviewed date:01/04/2025 11:56:25 AM Interpretation: Performing Lab:[facility], [address] [place] [address], Phone - [phone], Director - [facility] Notes/Report: Clinical Information:Vaginal/Cervical, LMP: 11/19 06/12, Hx of LGSIL, + HPV, ANGEL LUIS I Source.............Cervix;Vagina LMP / Prev Treat...WDZ=[id number];[place] / BX Dates / Results....05/27/24 LGSIL, + HPV No. of containers..01 ThinPrep Vial [id number] IGP No Culture 30 Plus Reviewed date:01/19/2025 11:41:38 AM Interpretation: Performing Lab:[facility], [address] [place] [address], Phone - [phone], Director - [facility] Notes/Report: Clinical Information:Vaginal/Cervical, LMP: 11/19 06/12, Hx of LGSIL, + HPV, ANGEL LUIS I Source.............Cervix;Vagina LMP / Prev Treat...AMG=[id number];[place] / BX Dates / Results....05/27/24 LGSIL, + HPV No. of containers..01 ThinPrep Vial DIAGNOSIS: EPITHELIAL CELL ABNORMALITY. ATYPICAL SQUAMOUS CELLS OF UNDETERMINED SIGNIFICANCE (ASC-US). PREDOMINANCE OF COCCOBACILLI CONSISTENT WITH SHIFT IN VAGINAL DIANNA IS PRESENT. Specimen adequacy: Satisfactory for evaluation. Endocervical and/or squamous metaplastic cells (endocervical component) are present. Clinician provided ICD10: N87.0 Performed by: Chante Arnold, Mail Courier (ASCP) Electronically signed by: Taylor Mario MD, Pathologist . . Pathologist provided ICD10: R87.610, R87.5 Note: The Pap smear is a screening test designed to aid in the detection of premalignant and malignant conditions of the uterine cervix. It is not a diagnostic procedure and should not be used as the sole means of detecting cervical cancer. Both false-positive and false-negative reports do occur. . Test Methodology: This liquid based ThinPrep(R) pap test was screened with the use of an image guided system. HPV Aptima Positive Negative This nucleic acid amplification test detects fourteen high-risk HPV types (16,18,31,33,35,39,45,51, 52,56,58,59,66,68) without differentiation. HPV Genotype Reflex Criteria not met, HPV Genotype not performed. SURGICAL PATHOLOGY Reviewed date:03/16/2025 01:13:15 PM Interpretation: Performing Lab:Testing performed or reported by [facility], a Service of [facility], [address] [place] [address] Vignesh Villanueva MD, Autism Tutor CLIA# [id number] Notes/Report: Patient Name: CAROLYNE BROWN Lab Patient : 1965 (Age: 59) Collection Date: 03/08/2025 Accession Date: 03/09/2025 Sign Out Date: 03/16/2025 Tissue Source: 1:LEEP [facility] Final Diagnosis: Cervix, LEEP: - Transformation zone mucosa with focal low grade squamous intraepithelial lesion (ANGEL LUIS 1). - Surgical margins are negative for ANGEL LUIS 1. Primary Pathologist:Shukri Christian M.D. electronically signed out by: Shukri Christian M.D. / [facility] Clinical History: Mild cervical dysplasia History of ASCUS, LGSIL, positive HPV Gross Description: Labeled LEEP . Received in formalin is an oriented intact cervical cone biopsy measuring 0.5 cm in length with en face measurements of 1.8 cm and 1.4 cm. There is a suture at one edge designating 12: 00. The os is peña, red and measures 0.3 x 0.2 cm. The ectocervical mucosa is patent peña-pink and smooth. The identifiable endocervical margin is pale red and glistening. The stromal margin is marked with black ink and the endocervical margin is marked with yellow ink. The cone is radially sectioned clockwise from 12:00 and entirely submitted sequentially in cassettes. Sectioning reveals focal cystic areas with translucent mucoidal material. 1-3 pieces 2-2 pieces 3-3 pieces. (EG)* As of December 26, 2023, the specimen processing and staining is performed at [facility], [address] [place] [address] (CLIA#[id number]). Its performance characteristics determined by [facility]. Shemar Jackson M.D. Autism Tutor of Surgical Pathology, Loli Mario M.D. Autism Tutor Cytopathology Phone #: [phone], On-Call Pathologist: [id number] Test, Urine Reviewed date:03/08/2025 10:53:23 AM Interpretation: Performing Lab: Notes/Report: Test, Urine Negative Reason For Referral No Information Medications Medication SIG (Take, Route, Frequency, Duration) Notes Start Date End Date Status Zinc Active Vitamin C 500 MG 1 tablet Orally Once a day; Duration: 30 day(s) Active Prometrium 200 MG 1 capsule at bedtime Orally Once a daily from days 1 to 20; Duration: 90 days 05/27/2024 Active Estradiol 0.075 MG/24HR 1 patch to skin Transdermal Two times a Week; Duration: 90 days 06/03/2024 Active Prometrium 200 MG 1 CAPSULE Orally TWI CE A DAY; Duration: 10 days 03/08/2025 Active Fish Oil Active Vitamin A Active Vitamin B Complex - as directed Orally Active Vitamin D3 50 MCG (2000 UT) 1 capsule Orally Once a day; Duration: 30 day(s) Active Social History Tobacco Use: Social History Observation Description Date Details (start date - stop date) Former Smoker NA - NA Sexual History Question Answer Notes Had sex in the past 12 months (vaginal, oral, or anal)? No Have you ever had a Sexually transmitted disease ? No AUDIT-C (Standard) Question Answer Notes Did you have a drink contain ing alcohol in the past year? Yes How often did you have six o r more drinks on one occasion in the past year? Never (0 point) How many drinks did you have on a typical day when you were drinking in the past year? 1 or 2 drinks (0 point) How often did you have a dri nk containing alcohol in the past year? 2 to 3 times a week (3 points) Points 3 Interpretation Positive Tobacco Control (Standard) Question Answer Notes Tobacco use: Former smoker How long has it been since you last smoked? Grea ter than 10 years Problems Problem Type SNOMED Code ICD Code Onset Dates Problem Status W/U Status Risk Notes Problem Human papilloma virus deoxyribonucleic acid test positive, high risk on vaginal specimen (559642924827884) Cervical high risk human papillomavirus (HPV) DNA test positive (R87.810) Active confirmed Problem Mild cervical dysplasia (551862517) Mild cervical dysplasia (N87.0) Active confirmed Problem Postmenopausal bleeding (81531592) Postmenopausal bleeding (N95.0) Active confirmed Problem Mucous polyp of cervix (98997565) Polyp of cervix uteri (N84.1) Active confirmed Problem Hypertrophy of breast (145847913) Hypertrophy of breast (N62) Active confirmed Problem Abnormal vaginal bleeding (151073253) Other specified abnormal uterine and vaginal bleeding (N93.8) Active confirmed Problem Menopause (396495101) Menopausal and female climacteric states (N95.1) Active confirmed Problem Gynecological examination normal (616953294694256) Encounter for gynecological examination (general) (routine) without abnormal findings (Z01.419) Active confirmed Vital Signs Temperature 97.2 degrees Fahrenheit 03/31/2025 Blood pressure diastolic 76 mm Hg 03/31/2025 Height 64 in 03/31/2025 Blood pressure systolic 110 mm Hg 03/31/2025 Weight 131 lbs 03/31/2025 BMI 22.48 kg/m2 03/31/2025 Encounters Encounter Location Date Provider Diagnosis [facility] [address] [address] 06/30/2024 Cynthia Mcdonald Low grade squamous intraepithelial lesion on cytologic smear of cervix (LGSIL) R87.612 ; Cervical high risk human papillomavirus (HPV) DNA test positive R87.810 and Polyp of cervix uteri N84.[address] [address] 07/15/2024 Cynthiamike Mcdonald Mild cervical dyspla lyubov N87.[address] [address] 09/09/2024 Cynthia Mcdonald Foreign body in vulv a and vagina, initial encounter T19.2XXA Total [address] [address] 12/30/2024 Cynthia Mcdonald Mild cervical dyspla lyubov N87.0 and Encounter for screening mammogram for malignant neoplasm of breast Z12.[address] [address] 03/08/2025 Cynthia Mcdonald Mild cervical dyspla lyubov N87.0 and Hormone replacement therapy Z79.890 [facility] [address] [place] [address] 03/31/2025 Cynthia Mcdonald Mild cervical dyspla lyubov N87.0 ; Other specified postprocedural states Z98.890 and Hormone replacement therapy Z79.890 [facility] [address] [place] [address] 08/12/2024 [facility]cdonald [facility] [address] [place] [address] 08/29/2024 Cynthia Mcdonald Total [address] [place] [address] 01/02/2025 Cynthia Mcdonald Total [address] [place] [address] 02/07/2025 Cynthia Mcdonald Assessments Encounter Date Diagnosis (ICD Code) Assessment Notes Treatment Notes Treatment Clinical Notes Section Notes 07/15/2024 Mild cervical dysplasia (ICD-10 - N87.0) DISCUSSED COLPOSCOPY AND BIOPSY RESULTS AND IMPLICATIONS OF ANGEL LUIS 1. DISCUSSED TX OPTIONS INCLUDIN. CLOSE OBSERVATION AND MONITORING WITH POSSIBLE REPEATED COLPOSCOPIES. 2. UNCONVENTIONAL TX USING 80% TCA APPLICATIONS Q 2 WEEKS X 3 TIMES 3.. LEEP AFTER THOROUGH DISCUSSION, PAT DECIDED TO HAVE PAP TEST REPEATED IN 6 MONTHS TO A YEAR AND IF WORSE THAN LSIL, WILL REPEAT COLPOSCOPY AND IF ANGEL LUIS 1 PERSISTS OR WORSENS, PROCEED WITH LEEP. 09/09/2024 Foreign body in vulva and vagina, initial encounter (ICD-10 - T19.2XXA) DISCUSSED HOW SHE CAN DECREASE RISK OF FORGETTING TO REMOVE TAMPONS. COUNT HER TAMPONS AND NUMBER THEM SHE INSERTS AND REMOVES. 12/30/2024 Mild cervical dysplasia (ICD-10 - N87.0) PAP TEST WITH HPV TYPING WAS OBTAINED. WILL CALL HER WITH RESULTS. 03/08/2025 Mild cervical dysplasia (ICD-10 - N87.0) DISCUSSED PAP TEST RESULTS AND ANGEL LUIS 1 AGAIN. DISCUSSED LEEP AND ITS RISKS. SEE ABOVE NOTE. 03/08/2025 Hormone replacement therapy (ICD-10 - Z79.890) DISCUSSED HRT. WE DO NOT WANT HER TO BLEED AFTER LEEP. WILL INCREASE HER PROMETRIUM DOSE TO 200 MG TWICE DAILY FOR THE NEXT 10 DAYS. DETAILED INSTRUCTIONS WERE GIVEN. 03/31/2025 Mild cervical dysplasia (ICD-10 - N87.0) DISCUSSED PATHOLOGY REPORT AND CLEAR MARGINS, ANGEL LUIS 1 REASSURED PAT THAT SHE HAS HEALED WELL. REPEAT PAP TEST IN 6 MONTHS. 03/31/2025 Other specified postprocedural states (ICD-10 - Z98.890) REASSURED PAT THAT POST LEEP EXAM IS NORMAL. SHE HAS HEALED WELL. 06/30/2024 Low grade squamous intraepithelial lesion on cytologic smear of cervix (LGSIL) (ICD-10 - R87.612) 03/31/2025 Hormone replacement therapy (ICD-10 - Z79.890) PAT'S HRT DOSE STARTED BY DR CEDILLO IS TOO HIGH. SHE WAS ON 0.1 MG ESTRADIOL PATCH TWICE WEEKLY AND WE REDUCED THIS TO 0.075 MG. SHE IS C/O BREAST ENGORGEMENT AND BLOATING. WILL FURTHER REDUCE THE DOSE GRADUALLY. DECREASE TO 0.05 MG Q THURSDAY AND 0.075 MG Q THURSDAY IN JUN 2025, THEN DECREASE FURTHER TO 0.05 MG Q AND THU IN SEP 2025. DETAILED INSTRUCTIONS WERE GIVEN. STAY ON PROMETRIUM 200 MG DAYS 10 TO 30 Q MONTH. PAT WILL CALL FOR RX'S IN JUN. WHEN SHE IS ON 0.05 MG, WE CAN REDUCE PROMETRIUM TO 100 MG DAILY. 12/30/2024 Encounter for screening mammogram for malignant neoplasm of breast (ICD-10 - Z12.31) REGULAR MAMMOGRAMS WERE RECOMMENDED. 06/30/2024 Cervical high risk human papillomavirus (HPV) DNA test positive (ICD-10 - R87.810) 06/30/2024 Polyp of cervix uteri (ICD-10 - N84.1) Plan Of Treatment Pending Test Test Name Order Date Sonohysterogram 05/14/2023 MAMMOGRAM, SCREENING 05/27/2024 Urinalysis 06/13/2022 Ultrasound : Retroperitoneal 10/23/2022 ENDOMETRIAL BX 05/14/2023 DIAGNOSTIC MAMMOGRAM, BILATERAL 05/14/20 COMPLETE URINALYSIS 05/12/2022 URINE CULTURE 05/12/2022 MM Digital Mammo Screening 05/08/2021 MM Digital Mammo Screening 05/14/2023 MM Digital Mammo Screening 05/27/2024 MM Digital Mammo Screening 12/30/2024 MM Digital Screen Mammo Unilat Right PELVIC ULTRASOUND W/TRANSVAGINAL 023 BILAT DIAGNOSTIC BREAST ULTRASOUND 05/14 Next Appt Details Provider Name:Cynthia spaulding, 09/29/2025 10:00:00 AM, [address], [address], [place], [address], Insurance Providers Payer Name Payer Address Payer Phone Subscriber Number Group Number Insured Name Patient Relationship to Insured Coverage Start Date Coverage End Date [employer] [place] [address] [place] [address] [id number] CAROLYNE BROWN Self - patient is the insured Medical (General) History Medical History History ICD Code Menopausal and female climacteric states N95.1 Hormone replacement therapy Z79.890 Cervical high risk human papillomavirus (HPV) DNA test positive R87.810 Personal history of other diseases of th e female genital tract Z87.42 Inconclusive mammogram R92.2 Other specified abnormal uterine and vag inal bleeding N93.8 Postmenopausal bleeding N95.0 Low grade squamous intraepit helial lesion on cytologic smear of cervix (LGSIL) R87.612 Mild cervical dysplasia N87.0 Mammographic heterogeneous density, bila teral breasts R92.333 Dense breasts, unspecified R92.30 Polyp of cervix uteri N84.1 Hypertrophy of breast N62 Foreign body in vulva and vagina, initia l encounter T19.2XXA Unspecified lump in the left breast, upp er inner quadrant N63.22 Unspecified lump in the right breast, up per outer quadrant N63.11 Hormone replacement therapy Z79.890 Surgical History Surgery Date(Month/Year) Polyp Removal 10/2018 Colonoscopy HSONO/EMB 06/05/23 Colposcopy 06/30/24 Hospitalization History Reason Date(Month/Year) 1 Vaginal Delivery
--- OUTSIDE RECORDS SUMMARY | 2025-06-30 17:05 | XMS_ITS | Clinical Summary ---
Author Organization [address] Address [address] [place] [address] Phone Care Team Providers Care Mac Developer Name Role Phone Melany Howe MD Primary Care Provider Surgical History Surgery Date Site/Laterality Comments OTHER SURGICAL HISTORY PROCEDURE: DENIES PREVIOUS SURGERY Medical History Medical History Date Comments Osteopenia 05/2018 DX:Osteopenia Family History Medical History Relation Name Comments Colon cancer Aunt Lung cancer Maternal Grandmother Lung cancer Mother Other: Other Mother Breast cancer Other m cousin 50s Ovarian cancer Neg Hx Pancreatic cancer Neg Hx Prostate cancer Neg Hx Uterine cancer Neg Hx Relation Name Status Comments Aunt Maternal Grandmother Mother Other m cousin 50s Alive Social History Tobacco Use Types Packs/Day Years Used Date Smoking Tobacco: Former Smokeless Tobacco: Never Alcohol Use Standard Drinks/Week Comments Yes 0 (1 standard drink = 0.6 oz pur e alcohol) Comments No Sex and Gender Information Value Date Recorded Sex Assigned at Not on file Legal Sex Female 9:51 AM EST Gender Identity Not on file Sexual Orientation Not on file Obstetrics History Para Term AB IAB SAB Ectopic Multiple Livin g Live Births 1 Date Outcome GA Total Labor Labor/2nd/3rd Weight Sex Type Anes PTL Brie A1 A5 Name Clin Term Plan of Treatment Health Maintenance Due Date Last Done Comments Cervical Cancer Screening: Pap Smear 1984 Pneumococcal Vaccine: 50+ Years (1 of 1 - PCV) 2013 Zoster Vaccines (2 of 2) 02/01/2022 12/07/2021 HIV Screening 09/27/2022 Hepatitis C Screening 09/27/2022 Social Influencers of Health Screening 09/27/2022 Depression Screening 10/19/2024 COVID-19 Vaccine ( season) 2025 09/24/2021, 12/14/2020, 11/23/2020 Influenza Vaccine (#1) 2025 Breast Cancer Screening 01/07/2027 01/08/20 25, 08/22/2023, 08/16/2022, Additional history exists Colorectal Cancer Screening: Colonoscopy 02/25/2027 DTaP,Tdap,and Td Vaccines (2 - Td or Tdap) 04/01/2029 04/01/2019 RSV Immunization Adult Patients (1 - 1-dose 75+ series) 2038 HIB Vaccines Aged Out No longer eligi ble based on patient's age to complete this topic HPV Vaccines Aged Out No longer eligi ble based on patient's age to complete this topic Hepatitis A Vaccines Aged Out No long er eligible based on patient's age to complete this topic Hepatitis B Vaccines Aged Out No long er eligible based on patient's age to complete this topic IPV Vaccines Aged Out No longer eligi ble based on patient's age to complete this topic MMR Vaccines Aged Out No longer eligi ble based on patient's age to complete this topic Meningococcal ACWY Vaccine Aged Out N o longer eligible based on patient's age to complete this topic Meningococcal B Vaccine Aged Out No l onger eligible based on patient's age to complete this topic RSV Immunization Patients Under 20 months Aged Out No longer eligible based on patient's age to complete this topic Varicella Vaccines Aged Out No longer eligible based on patient's age to complete this topic Procedures Procedure Name Priority Date/Time Associated Diagnosis Comments MG MAMMO DIGITAL SCREENING W ADAN BILAT Routine 01/07/2025 8:19 AM EDT Encounter for screening mammogram for malignant neoplasm of breast from Last 3 Months or Most Recently Relevant to Health Maintenance Results * MG Mammo Digital Screening w Adan bilat (01/07/2025 8:19 AM EDT) Anatomical Region Laterality Modality Breast Bilateral Mammography 01/09/2025 11:4 0 AM EDT Impressions 01/09/2025 12:05 PM EDT Benign. BI-RADS CATEGORY: 1 - NEGATIVE RECOMMENDATION: Screening bilateral mammogram is recommended in 1 year. Mammo Location: [facility], [address] [place] [address], [id number], . -------- FINAL REPORT -------- Dictated By: Zena Lilly Dictated Date: 01/09/2025 11:40 ET Assigned Physician: Zena Lilly Reviewed and Electronically Signed By: Zena Lilly Signed Date: 01/09/2025 12:05 ET Workstation ID: [id number] Transcribed By: Self Edit Transcribed Date: 01/09/2025 11:41 ET Narrative 01/09/2025 12:05 PM EDT CLINICAL: 59 years old, Female, routine annual exam. COMPARISON: Mammograms dating back to 08/07/2021 with most recent of 08/22/2023. TECHNIQUE: Bilateral MLO and CC views were obtained digitally with 3-D mammogram (digital breast tomosynthesis). Computer-aided detection was utilized in evaluation of this exam (CAD). FINDINGS: There is no evidence of suspicious mass or architectural distortion. No worrisome calcifications are evident. There has been no significant change from prior exam(s). BREAST DENSITY: C - The breasts are heterogeneously dense which may obscure small masses. Procedure Note Zena Lilly MD - 01/09/2025 CLINICAL: 59 years old, Female, routine annual exam. COMPARISON: Mammograms dating back to 08/07/2021 with most recent of08/22/2023. TECHNIQUE: Bilateral MLO and CC views were obtained digitally with 3-Dmammogram (digital breast tomosynthesis). Computer-aided detection wasutilized in evaluation of this exam (CAD). FINDINGS: There is no evidence of suspicious mass or architectural distortion. Noworrisome calcifications are evident. There has been no significantchange from prior exam(s). BREAST DENSITY: C - The breasts are heterogeneously dense which mayobscure small masses. IMPRESSION: Benign. BI-RADS CATEGORY: 1 - NEGATIVE RECOMMENDATION: Screening bilateral mammogram is recommended in 1 year. Mammo Location: [facility], [address] [place] [address], [id number], . -------- FINAL REPORT -------- Dictated By: Zena Lilly Dictated Date: 01/09/2025 11:40 ET Assigned Physician: Zena Lilly Reviewed and Electronically Signed By: Zena Lilly Signed Date: 01/09/2025 12:05 ET Workstation ID: [id number] Transcribed By: Self Edit Transcribed Date: 01/09/2025 11:41 ET us Melany Howe MD IMG BI PROCEDURES Final Res ult from Last 3 Months or Most Recently Relevant to Health Maintenance Insurance [place] [address] Care Teams Mac Developer Relationship Specialty Start Date End Date Melany Howe MD [address] [place] [address] PCP - General Internal Medicine 12/18/21
== END 2025-06-30 15:22 | disposition home or self-care (01) ==
PROVIDERS: PCP Internal Medicine; Visit Provider Physician Assistant
DX: R09.81 Nasal congestion (principal)